=== PATIENT | female | born 1970 | race Caucasian/White ===

== ENCOUNTER 2017-12-20 07:39 | Emergency (ER) | payer SELFPAY ==
[2017-12-20] MEDS ORDERED: HYDROcodone/Acetaminophen 10/325 mg Tablet ONE (08:47)
--- NOTE | 2017-12-20 09:06 | RAD ---
4 VIEW RIGHT KNEE: Date: 12/20/17 INDICATION: Pain. FINDINGS: There is no fracture or dislocation. Mild joint capsular distention is present. There is minute osteo phytosis. IMPRESSION: 1. No acute abnormality. 2. Mild joint capsular distention. Correlate clinically. POS: [facility]
== END 2017-12-20 08:50 | disposition home or self-care (01) ==
LOC: ERS 07:39
DX: M17.11 Unilateral primary osteoarthritis, right knee (principal); F17.210 Nicotine dependence, cigarettes, uncomplicated

== ENCOUNTER 2018-09-18 08:24 | Outpatient (CLI) | payer OTHER ==
--- NOTE | 2018-09-18 10:24 | ULT ---
PELVIC ULTRASOUND WITH DOPPLER: (Transabdominal, transvaginal, Falcon scale, color flow, and spectral Doppler images) Date: 09/18/18 HISTORY: Cervical lump. FINDINGS: The uterus measures 10.8 x 5.3 x 5.8 cm, with a 1.5 cm mass consistent with fibroid. The endometrium measures 1.3 cm in thickness. No endometrial fluid is seen. There is fluid in the endocervical canal. Nabothian cysts are noted in the vagina. Right ovary is not visualized. Left ovary measures 3.3 x 2.3 x 3.0 cm and demonstrates flow. A 2.0 cm cyst is seen in the left ovary. No free fluid is seen in the cul-de-sac. IMPRESSION: 1. Uterine fibroid. 2. 2.0 cm left ovarian cyst. 3. Fluid in the cervical canal. Evaluation for cervical outlet obstruction is recommended. POS: [facility]
== END 2018-09-18 08:25 | disposition home or self-care (01) ==
LOC: SCSULT 08:24
PROVIDERS: ATTEND Family Medicine
DX: R19.09 Other intra-abdominal and pelvic swelling, mass and lump (principal); D25.9 Leiomyoma of uterus, unspecified; N83.202 Unspecified ovarian cyst, left side
CPT/HCPCS: 76856

== ENCOUNTER 2018-09-18 08:27 | Outpatient (CLI) | payer OTHER ==
--- NOTE | 2018-09-18 10:40 | MMO ---
BILATERAL MAMMOGRAMS: HISTORY: Screening mammography. COMPARISON: 07/03/2013. FINDINGS: Heterogeneously dense fibroglandular tissue and benign-appearing calcifications. Partially calcified nodule in the left breast is stable. No dominant mass or suspicious calcifications. The study was evaluated with the assistance of computer-aided detection. IMPRESSION: BI-RADS category 2. Benign findings. Suggest routine followup. BIRADS 2: Benign Finding(s) Routine annual screening mammography (for women over age 40) POS: [facility]
== END 2018-09-18 08:28 | disposition home or self-care (01) ==
LOC: SCSMAMMO 08:27
PROVIDERS: ATTEND Family Medicine
DX: Z12.31 Encounter for screening mammogram for malignant neoplasm of breast (principal)
CPT/HCPCS: 77067

== ENCOUNTER 2018-12-16 13:11 | Emergency (ER) | payer OTHER ==
--- NOTE | 2018-12-16 15:01 | CT ---
CT lumbar spine noncontrast HISTORY: Low back injury. FINDINGS: Vertebral body heights and alignment are maintained. No acute fracture or dislocation are a pparent. Central canal is patent. No traumatic disc herniation visible. Very mild osteophytosis throughout the facets. IMPRESSION: No acute osseous abnormalities of the lumbar spine are demonstrated. Cause for acute back pain not evident.
[2018-12-16 15:51] LABS: Bilirubin Negative (Negative); Blood, Urine Large (Negative); Clarity CLOUDY (Clear); Glucose, Urine (Dipstick) Negative (Negative); Leukocyte Negative (Negative); Nitrite Negative (Negative); Protein, Urine (Dipstick) Trace mg/dL (Neg-Trace); Specific Gravity, Urine 1.025 (1.002-1.036); Urobilinogen 0.2 mg/dL (0.2-1.0)
[2018-12-16 15:52] LABS: Pregnancy Test - Urine (BHCG) Negative (Negative); Pregu Control Background? CLEAR/WHITE (CLR/WHITE); Pregu Control Bar Appear? YES (CONTROL BAR); Specific Gravity 1.025 (1.002-1.036)
[2018-12-16 15:55] LABS: Bacteria/HPF None Seen HPF (None Seen); Hyaline Casts/LPF 0-3 HYALINE CAST LPF (0-3 Hyaline); Pathc Cast-AUWi Flag 0.73 (0-2.49); RBC/HPF GREATER THAN 50-TNTC HPF (0-3); Squamous Epithelial 0-3 HPF (0-3)
== END 2018-12-16 16:35 | disposition home or self-care (01) ==
LOC: ERS 13:11
DX: M54.5 Low back pain (principal); R31.9 Hematuria, unspecified; I10 Essential (primary) hypertension; Z87.891 Personal history of nicotine dependence
CPT/HCPCS: 72131; 81003; 81015; 81025; 87086

== ENCOUNTER 2019-02-25 08:15 | Outpatient (CLI) | payer OTHER ==
--- NOTE | 2019-02-25 10:37 | MRI ---
MRI LEFT FOOT WITHOUT IV CONTRAST: HISTORY: M84.375D, stress fracture left foot, chronic off and on pain. 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 There are, in addition, oste oarthrosis changes noted involving the lateral cuneiform third metatarsal joint with some subchondral cystic changes and very minimal marrow signal extending into the base of the third metatarsal. I fa vor this being a reaction to the arthrosis. The possibility that this represents very subtle stress- related changes is a consideration as well, but no evidence for a dinah stress fracture. In addition , there are some arthrosis changes involving the talonavicular joint and minimal subchondral cystic c hanges adjacent to the sinus tarsi and posterior talar process. Mild thickening and increased signal in the plantar fascia insertion, evidence for some mild plantar fasciopathy. The Achilles tendon is unremarkable. No talar dome osteochondral lesion. IMPRESSION: Degenerative changes, including some subchondral cystic changes, involving the first metatarsophalang eal joint, as well as the lateral cuneiform third metatarsal joint, with some very minimal marrow erika ma extending into the base of the third metatarsal, which I favor to be reaction to the degenerative change. The possibility of this representing a very small focus of stress-related marrow edema canno t be totally, although there is no evidence for a dinah stress fracture. Other mild degenerative gustavo nges. POS: [facility]
== END 2019-02-25 08:16 | disposition home or self-care (01) ==
LOC: BICMRI 08:15
PROVIDERS: ATTEND Family Medicine
DX: M84.375D Stress fracture, left foot, subsequent encounter for fracture with routine healing (principal); M19.072 Primary osteoarthritis, left ankle and foot; R60.0 Localized edema

== ENCOUNTER 2021-01-03 14:48 | Outpatient (CLI) | payer BC | END 2021-01-03 14:49 | disposition home or self-care (01) | LOC: BICMAMMO 14:48 | PROVIDERS: ATTEND Family Medicine | DX: Z12.31 Encounter for screening mammogram for malignant neoplasm of breast (principal) | CPT/HCPCS: 77063; 77067 ==

== ENCOUNTER 2022-03-22 11:49 | Outpatient (CLI) | payer BC | END 2022-03-22 11:50 | disposition home or self-care (01) | LOC: BICMAMMO 11:49 | PROVIDERS: ATTEND Family Medicine | DX: Z12.31 Encounter for screening mammogram for malignant neoplasm of breast (principal); Z80.3 Family history of malignant neoplasm of breast | CPT/HCPCS: 77063; 77067 ==

== ENCOUNTER 2022-07-24 17:49 | Emergency (ER) | payer BC ==
[2022-07-24 18:33] LABS: Bilirubin Negative (Negative); Blood, Urine 3+ (Negative); Clarity Clear (Clear); Glucose, Urine (Dipstick) Normal (Negative); Ketone, Urine 10 mg/dL (Negative); Leukocyte Negative Leu/uL (Negative); Nitrite Negative (Negative); Protein, Urine (Dipstick) 10 mg/dL (Neg-Trace); RBC/HPF 21-50 HPF (0-3); Specific Gravity, Urine 1.031 (1.002-1.036); WBC/HPF 0-3 HPF (0-3); pH, Urine 6.5 (5.0-9.0)
[2022-07-24 18:34] LABS: #Eosinphils 0.1 thou/uL (0.0-0.7); #Lymphocytes 1.3 thou/uL (1.20-3.40); #Monocytes 0.4 thou/uL (0.11-0.59); #Neutrophils 5.7 thou/uL (1.40-6.50); %Basophils 0.2 % (0.0-1.0); %Eosinophils 1.4 % (0.0-10.0); %Lymphocytes 17.6 % (21.0-51.0); %Monocytes 5.5 % (0.0-10.0); %Neutrophils 75.4 % (42.0-75.0); Hemoglobin 13.6 g/dL (12.0-16.0); Mean Corpuscular Volume 90.7 fl (78.0-98.0); Mean Platelet Volume 10.1 fL (7.4-10.4); Platelet Count 205 10x3/uL (130-400); RBC Distribution Width 12.8 % (11.5-14.5); Red Blood Cell (RBC) Count 4.68 mill/uL (4.20-5.40); White Blood Cell (WBC) Count 7.6 10x3/uL (4.8-10.8)
[2022-07-24 18:44] LABS: Bacteria/HPF Rare-Few HPF (None Seen)
[2022-07-24 18:44] LABS: BHCG - Serum Negative (NEGATIVE); Pregs Control Background? CLEAR/WHITE (CLR/WHITE); Pregs Control Bar Appear? YES (CONTROL BAR)
[2022-07-24 18:56] LABS: ALT (SGPT) 36 U/L (8-55); AST (SGOT) 43 U/L (5-34); Albumin 4.1 g/dL (3.5-5.0); Alkaline Phosphatase 73 U/L (40-110); Anion Gap 11 mmol/L (10-20); BUN (Urea Nitrogen) 16 mg/dL (7.0-18.7); Bilirubin, Total 0.3 mg/dL (0.2-1.2); Calc. Creatinine Clearance 0 mL/min (70-130); Calcium 9.1 mg/dL (7.8-10.44); Carbon Dioxide 24 mmol/L (22-29); Chloride 107 mmol/L (98-107); Estimated GFR 88; Globulin 3.1 g/dL (2.4-3.5); Glucose 134 mg/dL (70-105); Lipase 42 U/L (8-78); Potassium 3.6 mmol/L (3.5-5.1); Protein, Total 7.2 g/dL (6.0-8.3); Sodium 138 mmol/L (136-145)
== END 2022-07-24 20:01 | disposition home or self-care (01) ==
LOC: ERS 17:49
DX: K29.70 Gastritis, unspecified, without bleeding (principal); I10 Essential (primary) hypertension; Z79.899 Other long term (current) drug therapy
CPT/HCPCS: 36415; 76705; 80053; 81003; 81015; 83690; 84703; 85025

== ENCOUNTER 2022-11-09 16:25 | Inpatient (IN) | payer BC, OTHER ==
[2022-11-09 17:10] LABS: #Eosinphils 0.2 thou/uL (0.0-0.7); #Lymphocytes 1.9 thou/uL (1.20-3.40); #Monocytes 0.7 thou/uL (0.11-0.59); #Neutrophils 6.2 thou/uL (1.40-6.50); %Basophils 0.3 % (0.0-1.0); %Eosinophils 2.5 % (0.0-10.0); %Lymphocytes 21.1 % (21.0-51.0); %Monocytes 7.6 % (0.0-10.0); %Neutrophils 68.4 % (42.0-75.0); Mean Corpuscular HGB CONC 33.1 g/dL (32.0-36.0); Mean Corpuscular Hemoglobin 29.4 pg (27.0-31.0); Mean Corpuscular Volume 88.9 fl (78.0-98.0); Mean Platelet Volume 9.8 fL (7.4-10.4); Platelet Count 189 10x3/uL (130-400); RBC Distribution Width 12.6 % (11.5-14.5); Red Blood Cell (RBC) Count 4.75 mill/uL (4.20-5.40)
[2022-11-09] MEDS ORDERED: Dicyclomine 20 MG/2 ML VIAL ONE (17:14)
[2022-11-09 17:30] LABS: ALT (SGPT) 21 U/L (8-55); AST (SGOT) 20 U/L (5-34); Albumin 4.2 g/dL (3.5-5.0); Alkaline Phosphatase 60 U/L (40-110); Anion Gap 12 mmol/L (10-20); BUN (Urea Nitrogen) 12 mg/dL (7.0-18.7); Bilirubin, Total 0.3 mg/dL (0.2-1.2); Calc. Creatinine Clearance 0 mL/min (70-130); Calcium 9.6 mg/dL (7.8-10.44); Carbon Dioxide 27 mmol/L (22-29); Chloride 103 mmol/L (98-107); Estimated GFR 88; Globulin 3.1 g/dL (2.4-3.5); Glucose 96 mg/dL (70-105); Lipase 31 U/L (8-78); Potassium 3.9 mmol/L (3.5-5.1); Protein, Total 7.3 g/dL (6.0-8.3); Sodium 138 mmol/L (136-145)
[2022-11-09 17:37] LABS: Bilirubin Negative (Negative); Blood, Urine Negative (Negative); Clarity Turbid (Clear); Glucose, Urine (Dipstick) Normal (Negative); Ketone, Urine Negative (Negative); Leukocyte Negative Leu/uL (Negative); Nitrite Negative (Negative); Protein, Urine (Dipstick) 10 mg/dL (Neg-Trace); Specific Gravity, Urine 1.023 (1.002-1.036); Urobilinogen Normal mg/dL (Less than 2)
[2022-11-09] MEDS ORDERED: Piperacillin/Tazobactam 3.375 GM VIAL ONE (19:55)
[2022-11-09 21:52] VITALS: BMI 36.6
[2022-11-09] MEDS: Lactated Ringer's 1,000 ML IV SCH (22:02)
[2022-11-09] MEDS ORDERED: Dicyclomine 20 MG TAB PO PRN (23:00)
[2022-11-10 07:43] LABS: #Eosinphils 0.2 thou/uL (0.0-0.7); #Lymphocytes 1.5 thou/uL (1.20-3.40); #Monocytes 0.5 thou/uL (0.11-0.59); #Neutrophils 2.6 thou/uL (1.40-6.50); %Basophils 0.2 % (0.0-1.0); %Eosinophils 4.1 % (0.0-10.0); %Lymphocytes 31.6 % (21.0-51.0); %Monocytes 10.6 % (0.0-10.0); %Neutrophils 53.5 % (42.0-75.0); Hemoglobin 11.5 g/dL (12.0-16.0); Mean Corpuscular HGB CONC 33.3 g/dL (32.0-36.0); Mean Corpuscular Hemoglobin 29.9 pg (27.0-31.0); Mean Corpuscular Volume 89.8 fl (78.0-98.0); Platelet Count 148 10x3/uL (130-400); RBC Distribution Width 12.5 % (11.5-14.5); Red Blood Cell (RBC) Count 3.85 mill/uL (4.20-5.40); White Blood Cell (WBC) Count 4.8 10x3/uL (4.8-10.8)
[2022-11-10 08:04] LABS: ALT (SGPT) 73 U/L (8-55); AST (SGOT) 55 U/L (5-34); Albumin 3.3 g/dL (3.5-5.0); Alkaline Phosphatase 56 U/L (40-110); Anion Gap 7 mmol/L (10-20); BUN (Urea Nitrogen) 10 mg/dL (7.0-18.7); Bilirubin, Total 0.3 mg/dL (0.2-1.2); Calc. Creatinine Clearance 156 mL/min (70-130); Calcium 8.3 mg/dL (7.8-10.44); Carbon Dioxide 24 mmol/L (22-29); Chloride 110 mmol/L (98-107); Estimated GFR 106; Globulin 2.5 g/dL (2.4-3.5); Glucose 81 mg/dL (70-105); Protein, Total 5.8 g/dL (6.0-8.3); Sodium 137 mmol/L (136-145)
[2022-11-10] MEDS: Gabapentin 300 MG CAP PO SCH ×3 (08:14→20:46)
[2022-11-10] MEDS: Lisinopril 20 MG TAB PO SCH (08:14)
[2022-11-10] MEDS: Lactated Ringer's 1,000 ML IV SCH ×2 (08:14→17:56)
[2022-11-10] MEDS ORDERED: Sodium Chloride 0.9% 100 ML ONE (17:26)
[2022-11-10] MEDS ORDERED: CEFAZOLIN 2 GM VIAL ONE (17:26)
[2022-11-10] MEDS ORDERED: Midazolam HCl 2 mg/2 ml Vial ONE (17:42)
[2022-11-10] MEDS ORDERED: fentaNYL PF 100 MCG/2 ML SYRINGE ONE (17:42)
[2022-11-10] MEDS ORDERED: HYDROmorphone 0.5 MG/0.5 ML SYRINGE ONE (17:42)
[2022-11-10] MEDS ORDERED: Iopamidol 15 ML ONE (17:43)
[2022-11-10] MEDS ORDERED: Bupivacaine/Epinephrine 0.25% 30 ML VIAL ONE (17:43)
[2022-11-10] MEDS ORDERED: Dexamethasone 20 MG/5 ML VIAL ONE (18:01)
[2022-11-10] MEDS ORDERED: Rocuronium Bromide 10 MG/ML (10ML VIAL) ONE (18:01)
[2022-11-10] MEDS ORDERED: GLYCOPYRROLATE/PF 0.2 MG/ML VIAL ONE (18:01)
[2022-11-10] MEDS ORDERED: PROPOFOL 200 MG/20 ML VIAL ONE (18:01)
[2022-11-10] MEDS ORDERED: Lidocaine 1% PF 5 ML VIAL ONE (18:01)
[2022-11-10] MEDS ORDERED: Ondansetron PF 4 MG/2 ML Vial ONE (18:01)
[2022-11-10] MEDS ORDERED: NEOSTIGMINE 3 MG/3 ML SYR 3 MG/3 ML SYRINGE ONE (18:01)
[2022-11-10] MEDS ORDERED: Ondansetron HCl/PF 4 MG/2 ML Vial IVP PRN (18:20)
[2022-11-10] MEDS ORDERED: Promethazine HCl 25 MG/ML VIAL IM PRN (18:20)
[2022-11-10] MEDS ORDERED: FENTANYL 50 MCG/ML 1 ML VIAL ONE ×2 (19:54→19:58)
[2022-11-10] MEDS ORDERED: traMADol HCl 50 MG TAB PO PRN (22:54)
[2022-11-10] MEDS: Acetaminophen 500 MG TAB PO SCH (23:07)
[2022-11-10] MEDS: traMADol HCl 50 MG TAB PO SCH (23:07)
[2022-11-11] MEDS: Lactated Ringer's 1,000 ML IV SCH ×2 (04:39→13:51)
[2022-11-11] MEDS: traMADol HCl 50 MG TAB PO SCH ×2 (05:30→13:49)
[2022-11-11] MEDS: Acetaminophen 500 MG TAB PO SCH ×2 (05:32→13:50)
[2022-11-11 07:15] LABS: Hemoglobin 12.4 g/dL (12.0-16.0); Mean Corpuscular HGB CONC 33.8 g/dL (32.0-36.0); Mean Corpuscular Hemoglobin 30.6 pg (27.0-31.0); Mean Corpuscular Volume 90.3 fl (78.0-98.0); Mean Platelet Volume 10.1 fL (7.4-10.4); Platelet Count 159 10x3/uL (130-400); RBC Distribution Width 12.5 % (11.5-14.5); Red Blood Cell (RBC) Count 4.06 mill/uL (4.20-5.40); White Blood Cell (WBC) Count 7.2 10x3/uL (4.8-10.8)
[2022-11-11 07:16] LABS: #Lymphocytes 0.7 thou/uL (1.20-3.40); #Monocytes 0.2 thou/uL (0.11-0.59); #Neutrophils 6.2 thou/uL (1.40-6.50); %Basophils 0.1 % (0.0-1.0); %Eosinophils 0.1 % (0.0-10.0); %Lymphocytes 9.7 % (21.0-51.0); %Monocytes 2.4 % (0.0-10.0); %Neutrophils 87.7 % (42.0-75.0); Hemoglobin 12.3 g/dL (12.0-16.0); Mean Corpuscular Hemoglobin 30.7 pg (27.0-31.0); Mean Corpuscular Volume 90.3 fl (78.0-98.0); Mean Platelet Volume 10.2 fL (7.4-10.4); Platelet Count 159 10x3/uL (130-400); RBC Distribution Width 12.6 % (11.5-14.5); White Blood Cell (WBC) Count 7.1 10x3/uL (4.8-10.8)
[2022-11-11 07:33] LABS: ALT (SGPT) 70 U/L (8-55); AST (SGOT) 46 U/L (5-34); Albumin 3.6 g/dL (3.5-5.0); Alkaline Phosphatase 57 U/L (40-110); Bilirubin, Direct 0.1 mg/dL (0.1-0.3); Bilirubin, Total 0.2 mg/dL (0.2-1.2); Protein, Total 6.2 g/dL (6.0-8.3)
[2022-11-11 07:38] LABS: ALT (SGPT) 74 U/L (8-55); AST (SGOT) 47 U/L (5-34); Albumin 3.4 g/dL (3.5-5.0); Alkaline Phosphatase 58 U/L (40-110); Anion Gap 10 mmol/L (10-20); BUN (Urea Nitrogen) 7 mg/dL (7.0-18.7); Bilirubin, Total 0.2 mg/dL (0.2-1.2); Calc. Creatinine Clearance 143 mL/min (70-130); Calcium 8.6 mg/dL (7.8-10.44); Carbon Dioxide 23 mmol/L (22-29); Chloride 108 mmol/L (98-107); Estimated GFR 99; Globulin 2.7 g/dL (2.4-3.5); Glucose 129 mg/dL (70-105); Potassium 4.5 mmol/L (3.5-5.1); Protein, Total 6.1 g/dL (6.0-8.3); Sodium 136 mmol/L (136-145)
[2022-11-11] MEDS: Lisinopril 20 MG TAB PO SCH (08:04)
[2022-11-11] MEDS: Gabapentin 300 MG CAP PO SCH ×2 (08:07→13:52)
[2022-11-11 14:57] VITALS: BP 104/65; TEMP 97
== END 2022-11-11 15:27 | disposition home or self-care (01) | DRG 419 ==
LOC: ERS 16:25 → T4-B 19:51 → OBSVTOIN 11-11 15:10
PROVIDERS: ADMIT Family Medicine; ATTEND Family Medicine
PROC: 0FT44ZZ Resection of Gallbladder, Percutaneous Endoscopic Approach (ICD-10-PCS; principal; 2022-11-10)
PROC: BF10YZZ Fluoroscopy of Bile Ducts using Other Contrast (ICD-10-PCS; 2022-11-10)
DX: K80.00 Calculus of gallbladder with acute cholecystitis without obstruction (principal); I10 Essential (primary) hypertension; E11.9 Type 2 diabetes mellitus without complications; G25.81 Restless legs syndrome; Z88.2 Allergy status to sulfonamides; Z88.1 Allergy status to other antibiotic agents; Z79.899 Other long term (current) drug therapy; Z87.891 Personal history of nicotine dependence; Z68.36 Body mass index [BMI] 36.0-36.9, adult
CPT/HCPCS: 36415; 47532; 76705; 80053; 81003; 83690; 84484; 85025; 88304; 93005; 96365; 96372; C1889; G0378; J1100; J1170; J2250; J2405; J2543; J2704; J3010; J3490; J7120; Q9967

== ENCOUNTER 2023-12-20 14:30 | Outpatient (CLI) | payer OTHER | END 2023-12-20 14:31 | disposition home or self-care (01) | LOC: BICCT 14:30 | PROVIDERS: ATTEND Otolaryngology Plastic Surgery within the Head & Neck | DX: R09.81 Nasal congestion (principal); M27.40 Unspecified cyst of jaw ==

== ENCOUNTER 2024-03-06 13:46 | Outpatient (CLI) | payer OTHER | END 2024-03-06 13:47 | disposition home or self-care (01) | LOC: ULT 13:46 | PROVIDERS: ATTEND Family Medicine | DX: R31.9 Hematuria, unspecified (principal); N39.43 Post-void dribbling | CPT/HCPCS: 76770 ==

== ENCOUNTER 2024-06-29 14:30 | Emergency (ER) | payer OTHER | END 2024-06-29 18:14 | disposition home or self-care (01) | LOC: ERS 14:30 | DX: G62.9 Polyneuropathy, unspecified (principal) | CPT/HCPCS: 99283 ==

== ENCOUNTER 2025-02-10 14:38 | Emergency (ER) | payer OTHER ==
[2025-02-10] MEDS ORDERED: Cyclobenzaprine 10 MG TAB ONE (15:33)
[2025-02-10] MEDS ORDERED: Acetaminophen 500 MG TAB ONE ×2 (16:55→16:57)
[2025-02-10] MEDS ORDERED: Ketorolac Tromethamine 30 MG (1 mL) VIAL ONE (16:55)
[2025-02-10] MEDS ORDERED: predniSONE 20 MG TAB ONE (16:55)
== END 2025-02-10 17:30 | disposition home or self-care (01) ==
LOC: ERS 14:38
DX: M25.511 Pain in right shoulder (principal); M54.50 Low back pain, unspecified; I10 Essential (primary) hypertension
CPT/HCPCS: 72100; 96372; 99283; J1885; J7512